=== PATIENT | female | born 1955 | race Caucasian/White ===

== ENCOUNTER → 2017-11-22 | Outpatient (CLI) | payer OTHER ==
[~2017-11-22] MED LIST: LORTAB 5-500 T1 EAC1 PO; NOHOMEMEDICATIONS
== END ==
LOC: M.RAD 09:29
DX: Z12.31 Encounter for screening mammogram for malignant neoplasm of breast (principal)

== ENCOUNTER → 2018-11-26 | Outpatient (CLI) | payer OTHER | LOC: M.RAD 07:30 | DX: Z12.31 Encounter for screening mammogram for malignant neoplasm of breast (principal) ==

== ENCOUNTER → 2018-12-16 | Outpatient (CLI) | payer OTHER | LOC: M.RAD 09:40 | DX: N63.20 Unspecified lump in the left breast, unspecified quadrant (principal); R92.1 Mammographic calcification found on diagnostic imaging of breast ==

== ENCOUNTER → 2018-12-31 | Outpatient (CLI) | payer OTHER ==
--- NOTE | 2019-01-06 08:06 | PATH ---
[address] [address] PATHOLOGY RPT PROCEDURE Name: NICHELLE BEAL Room: [facility] MICHAEL Garcia#: [id number] Admission: 12/31/18 Date of : 59 Discharge: Report #: [id number] Path Case #: [id number] [facility] Accession Number: [id number] . 01 Material submitted: . breast - LEFT BREAST STEREOTACTIC BIOPSY FOR CALCIFICATIONS. Modifiers: left . 01 Clinical history: . Left breast stereotactic biopsy for calcification . 02 Diagnosis: Left breast calcifications, stereotactic biopsy: - Benign breast tissue with multiple small ductal papillomas/papillomatosis, usual ductal epithelial hyperplasia, duct ectasia, focal chronic inflammation and luminal calcifications, negative for atypia. See comment. LBQ 01/03/2019 1100 Local . 02 Comment: Reviewed with Dr. Jessica Henderson who agrees with the diagnosis. (SHELLEY/db; 01/03/2019) . 02 Electronically signed: . William Mckeon MD, Pathologist NPI- [id number] . 01 Gross description: . Received in formalin labeled "Nichelle Beal, left breast calcifications," are multiple needle cores of yellow fibrofatty tissue measuring 4.7 x 3.7 x 0.6 cm in aggregate dimensions. Additionally received in the same container is a blue plastic cassette containing multiple needle cores of yellow fibrofatty tissue measuring 2.9 x 1.1 x 0.7 cm in aggregate dimensions. The tissue in the cassette is transferred to cassette A1 and the remaining tissue is submitted in its entirety in cassettes A2 and A3. The cold ischemic time is 8 minutes. The total formalin fixation time is greater than 6 hours and less than 72 hours. (TSD; 12/31/2018) TOB/TOB 12/31/2018 [facility] Local . 02 Pathologist provided ICD-10: D24.2, N62, N61.0 . 02 CPT . 718947 Specimen Comment: A courtesy copy of this report has been sent to [phone] Specimen Comment: [phone], [place] [address] PATHOLOGY RPT PROCEDURE Name: NICHELLE BEAL Room: [facility]#: [id number] Admission: 12/31/18 Date of : 59 Discharge: Report #: [id number] Path Case #: [id number] Specimen Comment: Report sent to ,DR ORTIZ / DR UMANZOR Specimen Comment: Report sent to Performed at: [address], [place], [place] [id number] MD Rob Angeles MD Phone: [phone] Performed at: 02 [facility] [address], [place], [place] [id number] MD William Mckeon MD Phone: [phone]
== END | disposition home or self-care (01) ==
LOC: M.RAD 08:28
DX: D24.2 Benign neoplasm of left breast (principal); N60.42 Mammary duct ectasia of left breast; N62 Hypertrophy of breast; R92.1 Mammographic calcification found on diagnostic imaging of breast; N61.0 Mastitis without abscess

== ENCOUNTER → 2019-08-27 | Outpatient (CLI) | payer OTHER | LOC: M.RAD 13:00 | PROVIDERS: ATTEND Surgery | DX: D24.2 Benign neoplasm of left breast (principal) ==

== ENCOUNTER → 2019-11-28 | Outpatient (CLI) | payer OTHER | LOC: M.RAD 12:50 | PROVIDERS: ATTEND Surgery | DX: Z12.31 Encounter for screening mammogram for malignant neoplasm of breast (principal) ==

== ENCOUNTER → 2020-04-29 | Outpatient (CLI) | payer BC, OTHER | LOC: M.ULTRA 07:23 | PROVIDERS: ATTEND Family Medicine | DX: E07.9 Disorder of thyroid, unspecified (principal); E04.1 Nontoxic single thyroid nodule ==

== ENCOUNTER → 2020-06-23 | Outpatient (CLI) | payer BC, OTHER | LOC: M.RAD 12:51 | PROVIDERS: ATTEND Family Medicine | DX: C50.911 Malignant neoplasm of unspecified site of right female breast (principal); R92.2 Inconclusive mammogram ==